=== PATIENT | female | born 1995 | race Two or more races ===

== ENCOUNTER 2019-01-12 16:07 | Emergency (ER) | payer OTHER ==
[2019-01-12] MEDS ORDERED: NS 1,000 ML IV ONE ×2 (16:24→19:15)
[2019-01-12] MEDS ORDERED: ONDANSETRON 4 MG/2 ML VIAL IVP ONE ×2 (16:24→19:15)
[2019-01-12] MEDS ORDERED: HYDROmorphONE/DILAUDID 2 MG/ML INJ IVP ONE ×2 (16:36→18:31)
--- NOTE | 2019-01-12 16:40 | EDPHY ---
H & P Time Seen by Provider: 01/12/19 16:23 HPI/ROS: HPI Abdominal pain. History of gastric bypass surgery. 23-year-old female by private vehicle with friend. She had gastric bypass surgery in [facility], [place], 7 months ago. She reports that for the last 3 weeks she has had left upper quadrant pain described as sharp and stabbing, intermittent. This pain has been worse today. She has had mild nausea but no vomiting. Her last meal was at 11:00 a.m. This morning. She had a normal bowel movement this morning. No bloody or melenic stool. No diarrhea. Currently menstruating. ROS: Constitutional: No fever, no chills. No weakness. Eyes: No discharge. No changes in vision. ENT: No sore throat. No nasal congestion or rhinorrhea. Respiratory: No cough. No shortness of breath. Cardiac: No chest pain, no palpitations. Gastrointestinal: As above, no vomiting, no diarrhea. Genitourinary: No hematuria. No dysuria or increased frequency with urination. Musculoskeletal: No back pain. No neck pain. No myalgias or arthralgias. Skin: No rashes. Neurological: No headache. No focal weakness or altered sensation. Past medical history: As above. She does have a local primary care physician. Social history: Nonsmoker. Student [employer]. No alcohol. Here with her friend. Physical Exam: General Appearance: Alert, no distress. This patient is responding to questions appropriately and in full sentences. This patient appears well- hydrated and well-nourished. Eyes: Pupils equal and round no pallor or injection. No lid edema, erythema or injection. Respiratory: There are no retractions, lungs are clear to auscultation with good air movement bilaterally. Cardiovascular: Regular rate and rhythm. No murmur. Gastrointestinal: Obese habitus. Abdomen is soft with vague left upper quadrant and left mid tenderness on palpation, no masses, bowel sounds normal. No focal tenderness at McBurney's point. No Rodriguez sign. Neurological: Motor sensory function is grossly intact. Cranial nerves are normal. Gait is normal. Skin: Warm and dry, no rashes. Musculoskeletal: Neck is supple and nontender. Extremities are symmetrical. All joints range without pain or impingement. Psychiatric: No agitation. No depression. Database: EKG: EKG time is 7:31 p.m.; EKG shows a narrow complex normal sinus bradycardia with a ventricular rate of 41. The AK, QRS, QT intervals are within normal limits. There are no ST-T wave changes indicative of ischemic or injury pattern. No evidence of right heart strain. Interpreted by me. Imaging: CT abdomen and pelvis with IV contrast: Expected postoperative changes. Otherwise an unremarkable study. Results discussed with staff radiologist Dr. Kyle Bonds. Procedures: Emergency department course: Triage vital signs reviewed and are normal. IV was placed. She will be NPO. She was started on IV normal saline with 1 L to be given over the next hour. She was given 4 mg of IV Zofran. She was given 0.5 mg of IV hydromorphone initially for pain. CT abdomen and pelvis with IV contrast will be obtained pending a normal creatinine and negative . Patient consents to emergency department workup. 7:00 p.m., the patient has received an additional 0.5 mg of IV hydromorphone. She had a normal creatinine and was given 30 mg of IV Toradol as well. Her CT scan shows no evidence of surgical pathology. 7:15 p.m., the patient was re-evaluated, she is very relaxed from the hydromorphone. She does not appear to be in discomfort. Results of her CT scan were discussed with her. We have asked for a urine sample. She states that she is still not able to urinate. She will be given a 2nd L of IV normal saline. It was noted that she has a sinus bradycardia on the monitor with a ventricular rate of 40-44. Her blood pressure is 122/83. EKG will be obtained. I feel this is secondary to loss of sympathetic drive from the anxiolytic effect of the hydromorphone. 8:30 p.m., patient has been persistently bradycardic in the upper 30s to low 40s. Reasoning is as above. However, I will admit her to the hospitalist service overnight for observation. I discussed the case with on-call hospitalist Dr. Sarah Moran. Case discussed in detail with her. She will see this patient in the emergency department. She accepts this patient for admission to telemetry observation. Patient admitted to telemetry in stable condition. Differential Diagnosis: The differential diagnosis on this patient includes but is not limited to gastric ulcer, bowel obstruction. Appendicitis, cholecystitis, pancreatitis unlikely. This represents a partial list of diagnoses considered. These considerations are based on history, physical exam, past history, reassessment and diagnostic testing. Smoking Status: Never smoked Constitutional: Initial Vital Signs Temperature (C) 36.8 C 01/12/19 16:15 Heart Rate 71 01/12/19 16:15 Respiratory Rate 16 01/12/19 16:15 Blood Pressure 101/80 01/12/19 16:15 O2 Sat (%) 97 01/12/19 16:15 O2 Delivery Mode Nasal Cannula O2 (L/minute) 2 Allergies/Adverse Reactions: No Known Allergies Allergy (Unverified 06/07/18 15:53) Home Medications: Medication Instructions Recorded Acetaminophen [Tylenol 325mg (*)] 650 mg PO Q4 PRN #0 tab 08/15/16 Omeprazole Magnesium [Prilosec Otc] 40 mg PO DAILY #0 tablet.dr 08/15/16 Ondansetron Odt [Zofran Odt 4 mg 4 mg PO Q4 PRN #5 tab 08/15/16 (*)] oxyCODONE IR [Oxycodone Ir (*)] 5 - 10 mg PO Q4 PRN #10 tab 08/15/16 Cephalexin [Keflex (RX)] 500 mg PO TID #30 cap 06/07/18 Medical Decision Making - Diagnostics Imaging Results: Imaging Impressions Abdomen CT 01/12/19 17:26 Impression: 1. Mild air distention of the transverse colon without evidence of obstruction. 2. Likely benign 3 mm left lower lobe nodule. If the patient is a smoker or is high risk, unenhanced low dose chest CT for follow up in 12 months is considered optional. Otherwise, no further follow up is needed per Fleischner Society criteria. 3. Additional findings as above. Findings discussed with Donnell Deleon MD 01/12/2019 at 18:41. - Data Points Laboratory Results: Laboratory Results 01/12/19 16:30 01/12/19 16:30 01/12/19 01/12/19 01/12/19 20:08 16:30 16:30 WBC RBC Hgb Hct MCV MCH MCHC RDW Plt Count MPV Neut % (Auto) Lymph % (Auto) [place] % (Auto) Eos % (Auto) Baso % (Auto) Nucleat RBC Rel Count Absolute Neuts (auto) Absolute Lymphs (auto) Absolute Monos (auto) Absolute Eos (auto) Absolute Basos (auto) Absolute Nucleated RBC Immature Gran % Immature Gran # Sodium 141 mEq/L mEq/L (135-145) Potassium 3.7 mEq/L mEq/L (3.5-5.2) Chloride 107 mEq/L mEq/L (97-110) Carbon Dioxide 25 mEq/l mEq/l (22-31) Anion Gap 9 mEq/L mEq/L (6-14) BUN 8 mg/dL mg/dL (7-23) Creatinine 0.5 mg/dL L mg/dL (0.6-1.0) Estimated GFR > 60 Glucose 64 mg/dL L mg/dL (70-100) Calcium 9.3 mg/dL mg/dL (8.5-10.4) Total Bilirubin 0.4 mg/dL mg/dL (0.1-1.4) Conjugated Bilirubin 0.3 mg/dL mg/dL (0.0-0.5) Unconjugated Bilirubin 0.1 mg/dL mg/dL (0.0-1.1) AST 26 IU/L IU/L (14-46) ALT 34 IU/L IU/L (9-52) Alkaline Phosphatase 77 IU/L IU/L (38-126) Total Protein 7.3 g/dL g/dL (6.3-8.2) Albumin 3.8 g/dL g/dL (3.5-5.0) Lipase 109 IU/L IU/L (23-300) Beta HCG, Qual NEGATIVE Urine Color YELLOW Urine Appearance CLEAR Urine pH 5.0 (5.0-7.5) Ur Specific [place] > 1.060 H (1.002-1.030) Urine Protein NEGATIVE (NEGATIVE) Urine Ketones TRACE H (NEGATIVE) Urine Blood NEGATIVE (NEGATIVE) Urine Nitrate NEGATIVE (NEGATIVE) Urine Bilirubin NEGATIVE (NEGATIVE) Urine Urobilinogen NEGATIVE EU EU (0.2-1.0) Ur Leukocyte Esterase NEGATIVE (NEGATIVE) Urine RBC 1-3 /hpf /hpf (0-3) Urine WBC 1-3 /hpf /hpf (0-3) Ur Epithelial Cells TRACE /lpf /lpf (NONE-1+) Urine Mucus TRACE /lpf /lpf (NONE-1+) Urine Glucose NEGATIVE (NEGATIVE) 01/12/19 16:30 WBC 7.59 10^3/uL 10^3/uL (3.80-9.50) RBC 4.78 10^6/uL 10^6/uL (4.18-5.33) Hgb 13.8 g/dL g/dL (12.6-16.3) Hct 42.5 % % (38.0-47.0) MCV 88.9 fL fL (81.5-99.8) MCH 28.9 pg pg (27.9-34.1) MCHC 32.5 g/dL g/dL (32.4-36.7) RDW 12.6 % % (11.5-15.2) Plt Count 422 10^3/uL H 10^3/uL (150-400) MPV 11.0 fL fL (8.7-11.7) Neut % (Auto) 58.3 % % (39.3-74.2) Lymph % (Auto) 31.2 % % (15.0-45.0) [place] % (Auto) 4.9 % % (4.5-13.0) Eos % (Auto) 4.5 % % (0.6-7.6) Baso % (Auto) 0.8 % % (0.3-1.7) Nucleat RBC Rel Count 0.0 % % (0.0-0.2) Absolute Neuts (auto) 4.43 10^3/uL 10^3/uL (1.70-6.50) Absolute Lymphs (auto) 2.37 10^3/uL 10^3/uL (1.00-3.00) Absolute Monos (auto) 0.37 10^3/uL 10^3/uL (0.30-0.80) Absolute Eos (auto) 0.34 10^3/uL 10^3/uL (0.03-0.40) Absolute Basos (auto) 0.06 10^3/uL 10^3/uL (0.02-0.10) Absolute Nucleated RBC 0.00 10^3/uL 10^3/uL (0-0.01) Immature Gran % 0.3 % % (0.0-1.1) Immature Gran # 0.02 10^3/uL 10^3/uL (0.00-0.10) Sodium Potassium Chloride Carbon Dioxide Anion Gap BUN Creatinine Estimated GFR Glucose Calcium Total Bilirubin Conjugated Bilirubin Unconjugated Bilirubin AST ALT Alkaline Phosphatase Total Protein Albumin Lipase Beta HCG, Qual Urine Color Urine Appearance Urine pH Ur Specific [place] Urine Protein Urine Ketones Urine Blood Urine Nitrate Urine Bilirubin Urine Urobilinogen Ur Leukocyte Esterase Urine RBC Urine WBC Ur Epithelial Cells Urine Mucus Urine Glucose Medications Given: Discontinued Medications Hydromorphone HCl (Dilaudid) 0.5 mg IVP EDNOW ONE Stop: 01/12/19 16:37 Last Admin: 01/12/19 16:41 Dose: 0.5 mg Hydromorphone HCl (Dilaudid) 0.5 mg IVP EDNOW ONE Stop: 01/12/19 16:57 Last Admin: 01/12/19 16:58 Dose: 0.5 mg Hydromorphone HCl (Dilaudid) 0.5 mg IVP EDNOW ONE Stop: 01/12/19 18:32 Last Admin: 01/12/19 18:54 Dose: 0.5 mg Sodium Chloride (Ns) 1,000 mls @ 0 mls/hr IV EDNOW ONE; Wide Open PRN Reason: Protocol Stop: 01/12/19 16:25 Last Admin: 01/12/19 16:37 Dose: 1,000 mls Sodium Chloride (Ns) 1,000 mls @ 0 mls/hr IV EDNOW ONE; Wide Open PRN Reason: Protocol Stop: 01/12/19 19:16 Last Admin: 01/12/19 19:20 Dose: 1,000 mls Ketorolac Tromethamine (Toradol) 30 mg IVP EDNOW ONE Stop: 01/12/19 18:46 Last Admin: 01/12/19 18:53 Dose: 30 mg Ondansetron HCl (Zofran) 4 mg IVP EDNOW ONE Stop: 01/12/19 16:25 Last Admin: 01/12/19 16:37 Dose: 4 mg Ondansetron HCl (Zofran) 4 mg IVP EDNOW ONE Stop: 01/12/19 19:16 Last Admin: 01/12/19 19:20 Dose: 4 mg Promethazine HCl (Phenergan) 12.5 mg IVP ONCE ONE Stop: 01/12/19 16:58 Last Admin: 01/12/19 16:58 Dose: 12.5 mg Departure - Departure Disposition: [facility] Acute Clinical Impression: Abdominal pain, History of gastric bypass surgery, Bradycardia Referrals: NONE *PRIMARY CARE P,. [Primary Care Provider] - As per Instructions
[2019-01-12 16:49] LABS: PLATELET COUNT 422 10^3/uL (150-400)
[2019-01-12] MEDS ORDERED: PROMETHAZINE HCL 25 MG/ML INJ ONE (16:54)
[2019-01-12] MEDS ORDERED: HYDROmorphONE/DILAUDID 1 MG/ML INJ ONE (16:54)
[2019-01-12] MEDS ORDERED: HYDROmorphONE/DILAUDID 1 MG/ML INJ IVP ONE (16:56)
[2019-01-12] MEDS ORDERED: PROMETHAZINE HCL 25 MG/ML INJ IVP ONE (16:57)
[2019-01-12] MEDS ORDERED: IOPAMIDOL (ISOVUE-300) 100 ML BTL ONE (17:38)
[2019-01-12] MEDS ORDERED: KETOROLAC 30 MG/1 ML SDV IVP ONE (18:45)
[2019-01-12] MEDS ORDERED: ONDANSETRON 4 MG/2 ML VIAL ONE (19:15)
[2019-01-12] MEDS ORDERED: oxyCODONE IR 5 MG TAB PO PRN (22:18)
[2019-01-12] MEDS ORDERED: PROMETHAZINE HCL 25 MG/ML INJ IVP PRN (22:18)
[2019-01-12] MEDS ORDERED: ACETAMINOPHEN 325 MG TAB PO PRN (22:18)
[2019-01-12] MEDS ORDERED: HYDROmorphONE/DILAUDID 1 MG/ML INJ IVP PRN (22:18)
[2019-01-12] MEDS ORDERED: ONDANSETRON 4 MG/2 ML VIAL IVP PRN (22:18)
[2019-01-12] MEDS ORDERED: ONDANSETRON DISINTEGRATING 4 MG TAB PO PRN (22:18)
[2019-01-12] MEDS ORDERED: NS 1,000 ML IV SCH (22:30)
[2019-01-13] MEDS ORDERED: oxyCODONE IR 5 MG TAB PO PRN (00:33)
[2019-01-13] MEDS: PANTOPRAZOLE SODIUM 40 MG VIAL IVP SCH ×2 (00:52→08:06)
--- NOTE | 2019-01-13 01:49 | PDGENHP ---
History and Physical - Chief Complaint Abdominal pain - History of Present Illness 23 yo F w/ hx of obesity s/p gastric bypass 7 months ago presents with abdominal pain. The patient tells me she has been having intermittent abdominal pain since her surgery. The pain is in the LUQ. Over the last few weeks it has been worsening. The pain was very severe today and not relieved by Tylenol or marijuana so she came in to the ED for evaluation. Her doctor has told her not to take NSAIDs for the risk of PUD. She states that initial evaluation for this demonstrated possible sutures left behind from the initial surgery. However, our CT scan here from admission does not mention this. She also states she has had intermittent fevers, last 2 weeks ago. During my evaluation she is comfortable without pain. She does state that food often improves the pain. She denies BRBPR or melena. In the ED she has also been bradycardic intermittently without symptoms. She has remained in sinus rhythm. Case discussed with Dr. Moran; records reviewed and summarized above. History Information - Allergies/Home Medication List Allergies/Adverse Reactions: No Known Allergies Allergy (Verified 01/12/19 20:52) Home Medications: Multivitamins [Multivitamin (*)] 1 each PO DAILY 01/12/19 [Last Taken 01/12/19] I have personally reviewed and updated: family history, medical history - Past Medical History Additional medical history: Obesity - Surgical History Additional surgical history: Gastric bypass - Family History Positive for: diabetes type II, hypertension Additional family history: Obesity - Social History Smoking Status: Never smoked Review of Systems Review of Systems: ROS: 10pt was reviewed & negative except for what was stated in HPI & below Physical Exam Physical Exam: Temp Pulse Resp BP Pulse Ox 36.4 C 42 L 18 139/88 H 100 01/12/19 19:55 01/13/19 01:28 01/13/19 01:28 01/13/19 01:28 01/13/19 01:28 O2 (L/minute) 2 Constitutional: no apparent distress, not in pain Eyes: PERRL, EOMI Ears, Nose, Mouth, Throat: moist mucous membranes, no oral mucosal ulcers Cardiovascular: regular rate and rhythym, no murmur, rub, or gallop Respiratory: no respiratory distress, clear to auscultation Gastrointestinal: normoactive bowel sounds, tenderness (LUQ), No guarding, No rebound, No distension Skin: warm, normal color Musculoskeletal: full muscle strength, no muscle tenderness Neurologic: AAOx3, CN II-XII Intact Psychiatric: interacting appropriately, not anxious Lab Data & Imaging Review 01/12/19 16:30 01/12/19 16:30 WBC 7.59 10^3/uL (3.80-9.50) 01/12/19 16:30 RBC 4.78 10^6/uL (4.18-5.33) 01/12/19 16:30 Hgb 13.8 g/dL (12.6-16.3) 01/12/19 16:30 Hct 42.5 % (38.0-47.0) 01/12/19 16:30 MCV 88.9 fL (81.5-99.8) 01/12/19 16:30 MCH 28.9 pg (27.9-34.1) 01/12/19 16:30 MCHC 32.5 g/dL (32.4-36.7) 01/12/19 16:30 RDW 12.6 % (11.5-15.2) 01/12/19 16:30 Plt Count 422 10^3/uL (150-400) H 01/12/19 16:30 MPV 11.0 fL (8.7-11.7) 01/12/19 16:30 Neut % (Auto) 58.3 % (39.3-74.2) 01/12/19 16:30 Lymph % (Auto) 31.2 % (15.0-45.0) 01/12/19 16:30 [place] % (Auto) 4.9 % (4.5-13.0) 01/12/19 16:30 Eos % (Auto) 4.5 % (0.6-7.6) 01/12/19 16:30 Baso % (Auto) 0.8 % (0.3-1.7) 01/12/19 16:30 Nucleat RBC Rel Count 0.0 % (0.0-0.2) 01/12/19 16:30 Absolute Neuts (auto) 4.43 10^3/uL (1.70-6.50) 01/12/19 16:30 Absolute Lymphs (auto) 2.37 10^3/uL (1.00-3.00) 01/12/19 16:30 Absolute Monos (auto) 0.37 10^3/uL (0.30-0.80) 01/12/19 16:30 Absolute Eos (auto) 0.34 10^3/uL (0.03-0.40) 01/12/19 16:30 Absolute Basos (auto) 0.06 10^3/uL (0.02-0.10) 01/12/19 16:30 Absolute Nucleated RBC 0.00 10^3/uL (0-0.01) 01/12/19 16:30 Immature Gran % 0.3 % (0.0-1.1) 01/12/19 16:30 Immature Gran # 0.02 10^3/uL (0.00-0.10) 01/12/19 16:30 Sodium 141 mEq/L (135-145) 01/12/19 16:30 Potassium 3.7 mEq/L (3.5-5.2) 01/12/19 16:30 Chloride 107 mEq/L (97-110) 01/12/19 16:30 Carbon Dioxide 25 mEq/l (22-31) 01/12/19 16:30 Anion Gap 9 mEq/L (6-14) 01/12/19 16:30 BUN 8 mg/dL (7-23) 01/12/19 16:30 Creatinine 0.5 mg/dL (0.6-1.0) L 01/12/19 16:30 Estimated GFR > 60 01/12/19 16:30 Glucose 64 mg/dL (70-100) L 01/12/19 16:30 Calcium 9.3 mg/dL (8.5-10.4) 01/12/19 16:30 Total Bilirubin 0.4 mg/dL (0.1-1.4) 01/12/19 16:30 Conjugated Bilirubin 0.3 mg/dL (0.0-0.5) 01/12/19 16:30 Unconjugated Bilirubin 0.1 mg/dL (0.0-1.1) 01/12/19 16:30 AST 26 IU/L (14-46) 01/12/19 16:30 ALT 34 IU/L (9-52) 01/12/19 16:30 Alkaline Phosphatase 77 IU/L (38-126) 01/12/19 16:30 Total Protein 7.3 g/dL (6.3-8.2) 01/12/19 16:30 Albumin 3.8 g/dL (3.5-5.0) 01/12/19 16:30 Lipase 109 IU/L (23-300) 01/12/19 16:30 Beta HCG, Qual NEGATIVE 01/12/19 16:30 Urine Color YELLOW 01/12/19 20:08 Urine Appearance CLEAR 01/12/19 20:08 Urine pH 5.0 (5.0-7.5) 01/12/19 20:08 Ur Specific [place] > 1.060 (1.002-1.030) H 01/12/19 20:08 Urine Protein NEGATIVE (NEGATIVE) 01/12/19 20:08 Urine Ketones TRACE (NEGATIVE) H 01/12/19 20:08 Urine Blood NEGATIVE (NEGATIVE) 01/12/19 20:08 Urine Nitrate NEGATIVE (NEGATIVE) 01/12/19 20:08 Urine Bilirubin NEGATIVE (NEGATIVE) 01/12/19 20:08 Urine Urobilinogen NEGATIVE EU (0.2-1.0) 01/12/19 20:08 Ur Leukocyte Esterase NEGATIVE (NEGATIVE) 01/12/19 20:08 Urine RBC 1-3 /hpf (0-3) 01/12/19 20:08 Urine WBC 1-3 /hpf (0-3) 01/12/19 20:08 Ur Epithelial Cells TRACE /lpf (NONE-1+) 01/12/19 20:08 Urine Mucus TRACE /lpf (NONE-1+) 01/12/19 20:08 Urine Glucose NEGATIVE (NEGATIVE) 01/12/19 20:08 Imaging Review: Imaging Impressions Abdomen CT 01/12/19 17:26 Impression: 1. Mild air distention of the transverse colon without evidence of obstruction. 2. Likely benign 3 mm left lower lobe nodule. If the patient is a smoker or is high risk, unenhanced low dose chest CT for follow up in 12 months is considered optional. Otherwise, no further follow up is needed per Fleischner Society criteria. 3. Additional findings as above. Findings discussed with Donnell Deleon MD 01/12/2019 at 18:41. Assessment & Plan Assessment: 23 yo F w/ hx of gastric bypass presents w/ acute on chronic abdominal pain. Plan: 1. Acute on chronic abdominal pain - LUQ pain has been present intermittently since her gastric bypass 7 months ago. The pain has worsened over the last few days. She does state the pain improves w/ food, which may be c/w PUD/gastritis. However, she mentions intermittent fevers (last 2 weeks ago), which could be a sign of more complicated post-surgical complication. CT scan on admission ( personally reviewed/interpreted) without findings to clearly explain the pain. She denies diarrhea, BRBPR, and melena. - Admit for observation - Clear liquid diet, mIVF, ADAT - Pain control - Will trial PPI IV BID initially - If pain not improving with conservative measures, may benefit from EGD 2. Sinus bradycardia - With brief dips in the 30s; asymptomatic and hemodynamically stable. This is likely related to vasovagal effect form pain and effect of opiates. - Monitor on telemetry - Limit opiates as able Diet - Clears, mIVF Code - Full Ppx - Low risk, ambulate TID Dispo - Admit under observation status
[2019-01-13 06:29] LABS: PLATELET COUNT 340 10^3/uL (150-400)
[2019-01-13] MEDS ORDERED: FAMOTIDINE 20 MG TAB ONE (08:16)
[2019-01-13] MEDS ORDERED: FAMOTIDINE 20 MG TAB PO ONE (08:29)
--- NOTE | 2019-01-13 12:09 | PDDCSUM ---
Discharge Summary Discharge Summary: 23 yo F w/ hx of gastric bypass presents w/ acute on chronic abdominal pain. Describes pain as LUQ. CT showed mild air distention of the transverse colon towards the splenic flexure w/o e/o acute obstruction. she was admitted. She was initially NPO and then diet was advanced to clears. On the morning of discharge, she asked her nurse for discharge and requested I see her early. She is no longer having any abd pain. On my exam, she still has some LUQ tenderness on palpation. She denies any nausea or vomiting or abd pain other than during my exam. She is having flatus. She had a BM yesterday. I offered advancing her diet while in the hospital. She wants to discharge and we will. She will f/u with her PCP. She is encouraged to advance her diet slowly. DDX: 1. Acute on chronic abdominal pain - LUQ pain has been present intermittently since her gastric bypass 7 months ago. - Will trial PPI 2. Sinus bradycardia - With brief dips in the 30s; asymptomatic and hemodynamically stable. This is likely related to vasovagal effect form pain and effect of opiates. Exam: NAD AAOX3 RRR CTA B SOFT, MILD TENDERNESS ON PALPATION TO LUQ, NO R/G MEDS: SEE MED REC TOTAL TIME SPENT ON D/C IS 35 MINS. D/W NURSE
[2019-01-13 12:23] VITALS: BP 114/70
== END 2019-01-13 12:22 | disposition left against medical advice (07) ==
LOC: UNDOADMOB 20:43
DX: R10.9 Unspecified abdominal pain (principal); R00.1 Bradycardia, unspecified; E86.9 Volume depletion, unspecified; Z98.84 Bariatric surgery status
CPT/HCPCS: 96374; J1170; J1885; J2405; J2550; Q9967